=== PATIENT | female | born 1995 | race Caucasian/White ===

== ENCOUNTER 2018-02-11 22:21 | Observation (INO) | payer OTHER, SELFPAY ==
[2018-02-12 00:44] VITALS: BMI 33.5
[2018-02-12 00:45] VITALS: BP 102/59; PULSE 76; RESP 16; TEMP 36.8; O2SAT 99
[2018-02-12 00:46] VITALS: BMI 33.5
--- NOTE | 2018-02-12 00:59 | PCM.HP.STD ---
Problem List (1) Seizure Status: Acute History of Present Illness Date of Admission: 02/12/18 Chief Complaint: seizure The patient is a 22 year old female patient with no significant past medical history presents to the ER at [facility] after experiencing a seizure. She states she felt lght headed and dizzy this evening and suddenly felt as if she might pass out. She sat down in a chair and her family reported that during this time she started to tense up and her arms curled inward towards her body. She was unresponsive for two minutes. She was incontinent to urine during this event. She has had no subsequent episodes. She denies previous seizure history. She denies illicit drugs or any new chemical exposure. She returned from a semester abroad in January having spent the semester in [facility]. CT head is within normal limits. Tox screen was negative for illicit drugs and alcohol level was normal. WBC count slightly elevated and she does have leukocytes in her urine. ER doctor felt strongly that patient needed observation so transfer was accepted to our facility. She will get an EEG and a neurology consult. The patient is a college student at [employer] in [place]. Past Medical History Surgical History: no surgical history Smoking Status: Never smoker Tobacco Use: Secondhand Review of Systems Constitutional: Denies: Chills, Fever, Weight Change HEENT: Denies: Head Aches, Sinus Congestion, Sinus Drainage Cardiovascular: Denies: Chest Pain, Palpitations Respiratory: Denies: Cough, Shortness of breath at rest, Sputum production Gastrointestinal: Denies: Abdominal Pain, Nausea, Vomiting Genitourinary: Denies: Dysuria Musculoskeletal: Denies: Joint Pain, Joint Tenderness Skin: Denies: Rash, Wounds Neurological: Reports: Seizures. Denies: Focal weakness, Numbness, Tingling Psychiatric: Denies: Anxiety, Depression, Homicidal Ideations, Suicidal Ideations Hematologic/ Lymphatic: Denies: Easy Bruising, Easy Bleeding VTE Information - Inpt Only VTE Present on Admission: No VTE Mechan Device Prophylaxis: SCD's VTE Pharm Prophylaxis ordered?: No Patient Problems: Active and Suspected Problems Seizure (Acute) - Physical Exam General: Alert, Oriented x3, Cooperative HEENT: Atraumatic, PERRLA, EOMI, Normocephalic Neck: Supple Lungs: Clear to auscultation, Normal air movement, No rhonchi, No wheeze, No rales Cardiovascular: Regular rate, Regular Rhythm, Normal S1, Normal S2, No murmurs Abdomen: Bowel Sounds Present, Soft, Non Tender Extremities: No edema, Capillary Refill Less than 3 Seconds Skin: No rashes, No breakdown Musculoskeletal: No Tenderness to Palpation of Joints or Extremities Neurological: Cranial nerves II-XII grossly intact Psych/Mental Status: Normal Affect, Appropriate Weight: 201 lb 4.513 oz Body Mass Index (BMI) 33.5 Assessment/Plan All Active Problems Seizure (Acute) New onset Seizure Plan - consult neurology, EEG in am, seizure precautions Code Visit OBSV E&M: 84290 Initial observation care L2
--- NOTE | 2018-02-12 01:06 | HP.PCM_ITS ---
Problem List (1) Seizure Status: Acute History of Present Illness Date of Admission: 02/12/18 Chief Complaint: seizure The patient is a 22 year old female patient with no significant past medical history presents to the ER at [facility] after experiencing a seizure. She states she felt lght headed and dizzy this evening and suddenly felt as if she might pass out. She sat down in a chair and her family reported that during this time she started to tense up and her arms curled inward towards her body. She was unresponsive for two minutes. She was incontinent to urine during this event. She has had no subsequent episodes. She denies previous seizure history. She denies illicit drugs or any new chemical exposure. She returned from a semester abroad in January having spent the semester in [facility]. CT head is within normal limits. Tox screen was negative for illicit drugs and alcohol level was normal. WBC count slightly elevated and she does have leukocytes in her urine. ER doctor felt strongly that patient needed observation so transfer was accepted to our facility. She will get an EEG and a neurology consult. The patient is a college student at [employer] in [place]. Past Medical History Surgical History: no surgical history Smoking Status: Never smoker Tobacco Use: Secondhand Review of Systems Constitutional: Denies: Chills, Fever, Weight Change HEENT: Denies: Head Aches, Sinus Congestion, Sinus Drainage Cardiovascular: Denies: Chest Pain, Palpitations Respiratory: Denies: Cough, Shortness of breath at rest, Sputum production Gastrointestinal: Denies: Abdominal Pain, Nausea, Vomiting Genitourinary: Denies: Dysuria Musculoskeletal: Denies: Joint Pain, Joint Tenderness Skin: Denies: Rash, Wounds Neurological: Reports: Seizures. Denies: Focal weakness, Numbness, Tingling Psychiatric: Denies: Anxiety, Depression, Homicidal Ideations, Suicidal Ideations Hematologic/ Lymphatic: Denies: Easy Bruising, Easy Bleeding VTE Information - Inpt Only VTE Present on Admission: No VTE Mechan Device Prophylaxis: SCD's VTE Pharm Prophylaxis ordered?: No Patient Problems: Active and Suspected Problems Seizure (Acute) - Physical Exam General: Alert, Oriented x3, Cooperative HEENT: Atraumatic, PERRLA, EOMI, Normocephalic Neck: Supple Lungs: Clear to auscultation, Normal air movement, No rhonchi, No wheeze, No rales Cardiovascular: Regular rate, Regular Rhythm, Normal S1, Normal S2, No murmurs Abdomen: Bowel Sounds Present, Soft, Non Tender Extremities: No edema, Capillary Refill Less than 3 Seconds Skin: No rashes, No breakdown Musculoskeletal: No Tenderness to Palpation of Joints or Extremities Neurological: Cranial nerves II-XII grossly intact Psych/Mental Status: Normal Affect, Appropriate Weight: 201 lb 4.513 oz Body Mass Index (BMI) 33.5 Assessment/Plan All Active Problems Seizure (Acute) New onset Seizure Plan - consult neurology, EEG in am, seizure precautions Code Visit OBSV E&M: 25453 Initial observation care L2
[2018-02-12 06:29] VITALS: BP 99/46; PULSE 52; RESP 14; TEMP 36.6; O2SAT 100
--- NOTE | 2018-02-12 09:00 | PCM.PN.HOSP ---
Patient Problems: Active and Suspected Problems Seizure (Acute) Subjective: Patient seen and examined. She was admitted with a complaint of new onset seizure. Mother was by her bedside. According to patient and her mother, started feeling lightheaded and dizzy prior to onset of the seizure. She had about a 2-minute tonic seizure which involved all limbs with associated urinary incontinence. She is never had a seizure before and there does not appear to be any family history of seizure. She denies any alcohol intake or drug use. She spent a semester abroad in [facility] to return recently. Neurology has been consulted and she is getting an EEG this morning. Vitals/I&O's: Vital Signs Temp Pulse Resp BP Pulse Ox 97.9 F 52 L 14 99/46 L 100 02/12/18 06:29 02/12/18 06:29 02/12/18 06:29 02/12/18 06:29 02/12/18 06:29 Oxygen Delivery Method Room Air Weight: 201 lb 4.513 oz Body Mass Index (BMI) 33.5 General: Alert, Oriented x3, Cooperative, No apparent distress HEENT: Atraumatic, PERRLA, EOMI, Normocephalic Oral: Moist Mucosa Neck: Supple, No JVD, Negative Carotid Bruits Lungs: Clear to auscultation, Normal air movement, No rhonchi, No wheeze, No rales Cardiovascular: Regular rate, Regular Rhythm, Normal S1, Normal S2, No murmurs Abdomen: Bowel Sounds Present, Soft, Non Tender, Non-Distended, No Hepato-splenomegaly Extremities: No clubbing, No cyanosis, No edema, Capillary Refill Less than 3 Seconds Skin: No rashes, No breakdown Musculoskeletal: No Tenderness to Palpation of Joints or Extremities Lymphatic: No Cervical, Supraclavicular, or Inguinal Adenopathy Neurological: Cranial nerves II-XII grossly intact, Neuro grossly intact, Motor Exam 5/5 strength throughout Psych/Mental Status: Normal Affect, Appropriate, Alert and oriented to time, place, person, mood and affect Current Medications Magnesium Hydroxide (Milk Of Magnesia) 30 ml PO DAILY PRN PRN PRN Reason: Constipation Sodium Chloride () 5 - 15 ml IV UD PRN PRN Reason: SALINE FLUSH Medical Necessity - Tobacco Use Smoking Status: Never smoker Tobacco Use: Secondhand Assessment/Plan All Active Problems Seizure (Acute) 1. New onset seizure hasnt had any seizure again since admission no family history of seizure neurology consulted; awaiting rec's to have EEG this morning. CT head done at [facility] was negative for any acute pathology\ 2. DVT prophylaxis: encourage ambulation Code Visit OBSV E&M: 97549 Subsequent observation care L3
--- NOTE | 2018-02-12 09:04 | PN_ITS ---
Patient Problems: Active and Suspected Problems Seizure (Acute) Subjective: Patient seen and examined. She was admitted with a complaint of new onset seizure. Mother was by her bedside. According to patient and her mother, started feeling lightheaded and dizzy prior to onset of the seizure. She had about a 2-minute tonic seizure which involved all limbs with associated urinary incontinence. She is never had a seizure before and there does not appear to be any family history of seizure. She denies any alcohol intake or drug use. She spent a semester abroad in [facility] to return recently. Neurology has been consulted and she is getting an EEG this morning. Vitals/I&O's: Vital Signs Temp Pulse Resp BP Pulse Ox 97.9 F 52 L 14 99/46 L 100 02/12/18 06:29 02/12/18 06:29 02/12/18 06:29 02/12/18 06:29 02/12/18 06:29 Oxygen Delivery Method Room Air Weight: 201 lb 4.513 oz Body Mass Index (BMI) 33.5 General: Alert, Oriented x3, Cooperative, No apparent distress HEENT: Atraumatic, PERRLA, EOMI, Normocephalic Oral: Moist Mucosa Neck: Supple, No JVD, Negative Carotid Bruits Lungs: Clear to auscultation, Normal air movement, No rhonchi, No wheeze, No rales Cardiovascular: Regular rate, Regular Rhythm, Normal S1, Normal S2, No murmurs Abdomen: Bowel Sounds Present, Soft, Non Tender, Non-Distended, No Hepato- splenomegaly Extremities: No clubbing, No cyanosis, No edema, Capillary Refill Less than 3 Seconds Skin: No rashes, No breakdown Musculoskeletal: No Tenderness to Palpation of Joints or Extremities Lymphatic: No Cervical, Supraclavicular, or Inguinal Adenopathy Neurological: Cranial nerves II-XII grossly intact, Neuro grossly intact, Motor Exam 5/5 strength throughout Psych/Mental Status: Normal Affect, Appropriate, Alert and oriented to time, place, person, mood and affect Current Medications Magnesium Hydroxide (Milk Of Magnesia) 30 ml PO DAILY PRN PRN PRN Reason: Constipation Sodium Chloride () 5 - 15 ml IV UD PRN PRN Reason: SALINE FLUSH Medical Necessity - Tobacco Use Smoking Status: Never smoker Tobacco Use: Secondhand Assessment/Plan All Active Problems Seizure (Acute) 1. New onset seizure * hasnt had any seizure again since admission * no family history of seizure * neurology consulted; awaiting rec's * to have EEG this morning. * CT head done at [facility] was negative for any acute pathology\ * 2. DVT prophylaxis: encourage ambulation Code Visit OBSV E&M: [id number] Subsequent observation care L3
[2018-02-12 10:10] VITALS: BP 112/60; PULSE 60; RESP 18; TEMP 36.6; O2SAT 99
--- NOTE | 2018-02-12 10:37 | EEG ---
- Electroencephalogram This is a 18 channel electroencephalogram performed utilizing the International 10-20 electrode placement protocol as well as photic stimulation, hyperventilation and EKG reference leads on this 22-year-old female with a diagnosis of possible seizures. Background activity demonstrates 10 Hz posterior frequency which attenuates with eye opening. The patient remained awake throughout the recording. Hyperventilation is performed for 4 minutes with good effort with no lateralizing or epileptiform changes. The post hyperventilatory phase is unremarkable. EKG rhythm strip monitoring is normal sinus rhythm throughout the recording and photic stimulation generates a normal symmetric driving response in the posterior leads. There are no lateralizing or epileptiform changes noted. Impression: Normal awake electroencephalogram.
--- NOTE | 2018-02-12 10:40 | CON.PCM_ITS ---
Reason for Consult Date of Consultation: 02/12/18 Reason for Consultation: sz vs syncope History of Present Illness: The patient is a 22 year old right handed white female reports yesterday at 6pm noted sensation of heat, lightheadedness, numb ears and lips, sat down and lost consciousness, after two minutes awake and alert, had urinary incontinence, by the time squad arrived approx 8 minutes later she was normal and had already changed her clothes herself and felt normal, normal since. no recent illness, no meds. no otc or herbal, does describe jet lag. although hasnt travelled since 01/25/18. ct and ekg reportedly ok at [place]. no tongue biting. never any other events or tongue biting or nocturnal events. no significant head injuries. Per admit note: The patient is a 22 year old female patient with no significant past medical history presents to the ER at [facility] after experiencing a seizure. She states she felt lght headed and dizzy this evening and suddenly felt as if she might pass out. She sat down in a chair and her family reported that during this time she started to tense up and her arms curled inward towards her body. She was unresponsive for two minutes. She was incontinent to urine during this event. She has had no subsequent episodes. She denies previous seizure history. She denies illicit drugs or any new chemical exposure. She returned from a semester abroad in January having spent the semester in [facility]. CT head is within normal limits. Tox screen was negative for illicit drugs and alcohol level was normal. WBC count slightly elevated and she does have leukocytes in her urine. ER doctor felt strongly that patient needed obse rvation so transfer was accepted to our facility. She will get an EEG and a neurology consult. The patient is a college student at [employer] in [place]. Past Medical History Allergies amoxicillin Allergy (Verified 02/12/18 01:09) Rash Home Medications: Ambulatory Orders Medication Instructions Recorded NK 02/12/18 Surgical History: no surgical history Smoking Status: Never smoker Tobacco Use: Secondhand Review of Systems Constitutional: Denies: Chills, Fever, Weight Change HEENT: Denies: Head Aches, Sinus Congestion, Sinus Drainage Cardiovascular: Denies: Chest Pain, Palpitations Respiratory: Denies: Cough, Shortness of breath at rest, Sputum production Gastrointestinal: Denies: Abdominal Pain, Nausea, Vomiting Genitourinary: Denies: Dysuria Musculoskeletal: Denies: Joint Pain, Joint Tenderness Skin: Denies: Rash, Wounds Neurological: Denies: Numbness, Tingling, Focal weakness Psychiatric: Denies: Anxiety, Depression, Homicidal Ideations, Suicidal Ideations Hematologic/ Lymphatic: Denies: Easy Bruising, Easy Bleeding Patient Problems: Active and Suspected Problems Seizure (Acute) - Physical Exam General: Alert, Oriented x3, Cooperative HEENT: Atraumatic, PERRLA, EOMI, Normocephalic Neck: Supple, No JVD, Negative Carotid Bruits Lungs: Clear to auscultation, Normal air movement Cardiovascular: Regular rate, No murmurs Abdomen: Bowel Sounds Present, Soft, Non Tender Extremities: No edema, Capillary Refill Less than 3 Seconds Skin: No rashes, No breakdown Musculoskeletal: No Tenderness to Palpation of Joints or Extremities Neurological: Cranial nerves II-XII grossly intact Psych/Mental Status: Normal Affect, Appropriate Vital Signs Temp Pulse Resp BP Pulse Ox 36.6 C 60 18 112/60 99 02/12/18 10:10 02/12/18 10:10 02/12/18 10:10 02/12/18 10:10 02/12/18 10:10 Oxygen Delivery Method Room Air Weight: 91.3 kg Body Mass Index (BMI) 33.5 Current Home Med List Medication Instructions Recorded Confirmed Type NK 02/12/18 02/12/18 History Current Medications Generic Name Dose Route Start Last Admin Trade Name Freq PRN Reason Stop Dose Admin Magnesium Hydroxide 30 ml 02/12/18 01:17 Milk Of Magnesia PO DAILY PRN PRN Constipation Sodium Chloride 5 - 15 ml 02/12/18 01:25 IV UD PRN SALINE FLUSH EEG: Normal Assessment/Plan All Active Problems Seizure (Acute) suspect syncope: history of low blood pressure mri to complete workup, dc if neg encourage fluids liberal salt intake
--- NOTE | 2018-02-12 11:22 | MRI_ITS ---
STUDY: MRI BRAIN WITH AND WITHOUT CONTRAST REASON FOR EXAM: Female, 22 years old. SYNCOPE, lightheaded, facial numbness, loc, urninary incontinence, no hx seizure. TECHNIQUE: Standardized multiplanar fat and water weighted pulse sequences were obtained. 7 ml of Gadavist contrast material was administered intravenously for the contrast portion of the examination. COMPARISON: None. FINDINGS: Normal size of the ventricles and extra-axial spaces for the patient's age. Normal white matter tracts of the supratentorial brain. Normal bilateral basal ganglia. Normal thalami. There is no extra-axial fluid accumulation. Normal flow voids within the major intracranial circulation suggesting patency by spin echo criteria. Normal venous enhancement. There is no enhancing intra-axial or extra-axial abnormality. Normal sella turcica, pituitary gland, infundibular stalk, optic chiasm and hypothalamus. Normal tectal plate and pineal gland. Normal midbrain, farhat and medulla. Normal cerebellum. Normal basal cisterns. Normal bilateral temporal bones. Normal bilateral internal auditory canals. No demonstrated orbital abnormality, within the constraints of a routine brain study. Normal visualized paranasal sinuses. Normal calvarium and skull base. Normal visualized soft tissue structures. Normal visualized upper cervical spine. MRI/Brain W/WO Contrast IMPRESSION: Normal unenhanced and enhanced MRI of the brain. Electronically Signed: Russ Leal MD at 13:19 EST Tel , Service support ,
[2018-02-12 14:16] VITALS: BP 109/56; PULSE 77; RESP 18; TEMP 37.3; O2SAT 99
[2018-02-12 20:20] VITALS: BP 112/65; PULSE 73; RESP 16; TEMP 36.8; O2SAT 100
[2018-02-13 02:19] VITALS: BP 113/57; PULSE 69; RESP 16; TEMP 36.4; O2SAT 99
[2018-02-13 06:13] LABS: Absolute Lymphocyte Count 3.78 X10^3/ul (0.83-4.51); Basophil# 0.02 X10^3/uL; Basophil% 0.2 % (0-1); Eosinophil# 0.19 X10^3/uL; Eosinophils% 1.9 % (0-5); Hematocrit 38.7 % (37-47); Lymphocyte # 3.78 X10^3/ul (4.0); Lymphocyte % 38.7 % (19-41); Mean Corpuscular Hgb 28.4 pg (27.0-32.0); Mean Corpuscular Volume 91.5 fL (81-99); Mean Platelet Vol. 13.1 fl (6.2-12.0); Monocyte# 0.73 X10^3/uL; Monocyte% 7.5 % (0-10); Neutrophil # 5.04 X10^3/uL (2.7-7.7); Neutrophil % 51.5 % (47-70); Platelet Count 210 K/mm3 (150-450); RBC Distribution Width CV 12.8 % (11.6-14.6); RBC Distribution Width SD 42.7 fl (35.1-43.9); Red Blood Count 4.23 M/mm3 (4.2-5.4); White Blood Count 9.8 K/mm3 (4.4-11.0)
[2018-02-13 06:24] LABS: POSITIVE COUNT NO; POSITIVE DIFFERENTIAL NO; POSITIVE MORPHOLOGY NO
[2018-02-13 06:32] LABS: Anion Gap 8 (5-15); BUN 10 mg/dL (7-18); BUN/Creat Ratio 14.9 RATIO (10-20); Calcium,Total 8.5 mg/dL (8.5-10.1); Chloride 106 mmol/L (98-107); Creatinine, Serum 0.67 mg/dL (0.55-1.02); EST Glomerular Filtration Rate 117 mL/min (>60); Est Glom Filt Rate - Afr Amer 142 mL/min (>60); Estimated Creatinine Clearance 119.52 ml/min; Glucose 81 mg/dL (74-106); Potassium 3.7 mmol/L (3.5-5.1); Sodium Level 142 mmol/L (136-145)
[2018-02-13 09:15] VITALS: BP 107/56; PULSE 70; RESP 18; TEMP 36.4; O2SAT 100
--- NOTE | 2018-02-13 09:18 | DS.PCM_ITS ---
Discharge Date and Diagnosis Date of Admission: 02/12/18 Date of Discharge: 02/13/18 - Primary Discharge Diagnosis Active and Suspected Problems Seizure (Acute) Hospital Course and Treatment Imaging Results: Diagnostic Data Brain MRI 02/12/18 11:22 IMPRESSION: Normal unenhanced and enhanced MRI of the brain. Electronically Signed: Russ Leal MD at 13:19 EST Tel , Service support , neurology Operations: None Procedures: Electroencephalogram Summary of Care Provided: The patient is a 22 year old F was admitted with a complaint of seizure-like episode. Patient started feeling lightheaded and dizzy prior to the onset of the episode and according to her mother she had about a 2-minute tonic seizure- like episode with all the limbs stiffening and associated urinary incontinence. She had never had a seizure before and did not have any family history of seizure. She had no associated alcohol intake or drug use. Neurology was consulted. She had an EEG which was normal and she had an MRI of the brain which was also normal. Per neurology standpoint, they did not think this was a seizure and was more likely a syncopal episode. CT of the brain done [place] [facility] was also normal. Patient remained stable and was discharged home on 02/13/2018. She was counseled to continue with adequate oral fluid intake. She is to follow-up with her primary care doctor and neurologist. Patient seen and examined prior to discharge. She had no complaints and felt well. Mother was by her bedside. She denied any fever, any chills, any cough or chest pain, shortness of breath, abdominal pain, any diarrhea vomiting. 12 point review of systems otherwise negative. Labs and vitals reviewed. Home medications reviewed and reconciled. o/e: Vital Signs Height 5 ft 5 in Weight: 201 lb 4.513 oz Weight in Pounds 201.3 lbs Pulse Ox 100 Temperature 97.5 F Pulse Rate 70 Respiratory Rate 18 Blood Pressure 107/56 Blood Pressure Position Semi-Fowlers [] General: Alert, Oriented x3, Cooperative, No apparent distress HEENT: Atraumatic, PERRLA, EOMI, Normocephalic Oral: Moist Mucosa Neck: Supple, No JVD, Negative Carotid Bruits Lungs: Clear to auscultation, Normal air movement, No rhonchi, No wheeze, No rales Cardiovascular: Regular rate, Regular Rhythm, Normal S1, Normal S2, No murmurs Abdomen: Bowel Sounds Present, Soft, Non Tender, Non-Distended, No Hepato- splenomegaly Extremities: No clubbing, No cyanosis, No edema, Capillary Refill Less than 3 Seconds Skin: No rashes, No breakdown Musculoskeletal: No Tenderness to Palpation of Joints or Extremities Lymphatic: No Cervical, Supraclavicular, or Inguinal Adenopathy Neurological: Cranial nerves II-XII grossly intact, Neuro grossly intact, Motor Exam 5/5 strength throughout Psych/Mental Status: Normal Affect, Appropriate, Alert and oriented to time, place, person, mood and affect Plan as described above. - Physical Exam Vital Signs Temp Pulse Resp BP Pulse Ox 97.5 F L 70 18 107/56 L 100 02/13/18 09:15 02/13/18 09:15 02/13/18 09:15 02/13/18 09:15 02/13/18 09:15 Oxygen Delivery Method Room Air Weight: 201 lb 4.513 oz Body Mass Index (BMI) 33.5 Laboratory Tests Past 24 Hrs 02/13/18 02/13/18 05:25 05:25 WBC 9.8 RBC 4.23 Hgb 12.0 Hct 38.7 MCV 91.5 MCH 28.4 MCHC 31.0 L RDW 12.8 RDW Differential 42.7 Plt Count 210 MPV 13.1 H Immature Gran % (Auto) 0.200 Neut % (Auto) 51.5 Lymph % (Auto) 38.7 Beadle % (Auto) 7.5 Eos % (Auto) 1.9 Baso % (Auto) 0.2 Absolute Neuts (auto) 5.0 Absolute Lymphs (auto) 3.78 Total Counted Not Reportable Sodium 142 Potassium 3.7 Chloride 106 Carbon Dioxide 28.0 Anion Gap 8 BUN 10 Creatinine 0.67 Estim Creat Clear Calc 119.52 Est GFR (MDRD) Af Amer 142 Est GFR (MDRD) Non-Af 117 BUN/Creatinine Ratio 14.9 Glucose 81 Calcium 8.5 Discharge Diet: No Restrictions Discharge Activity: Return to Normal Activity Weight Bearing Status: Weight bearing as tolerated Call your doctor if you observe: Dizziness, Fainting spells Home Medications: Medications to take at Discharge NK 02/12/18 Please Follow Up With: Rachel Washington MD When: 1 week Please Follow Up With: Denis Singleton MD When: 1 week Patient Instructions: What Is Syncope?, Causes of Syncope, Treating Syncope: Prevention Disposition: Home Minutes spent on discharge:: 35 Patient Condition:: Stable Medical Necessity - Tobacco Use Smoking Status: Never smoker Tobacco Use: Secondhand Meaningful Use Info Meaningful Use Diagnoses (Choose all that apply): None applicable Code Visit Inpatient E&M: 99879 Disch Hosp
--- NOTE | 2018-02-13 09:18 | DCINST_ITS ---
- Discharge Diagnoses Current Active Problems: Current Active and Chronic Problems Seizure (Acute) You will use the following diet at home:: Regular Your food should be the consistency of: Regular Your liquids should be the consistency of: Regular/Thin Discharge Activity: Return to Normal Activity Weight Bearing Status: Weight bearing as tolerated Call your doctor if you observe: Dizziness, Fainting spells Instructions: What Is Syncope?, Causes of Syncope, Treating Syncope: Prevention Allergies/Adverse Reactions: Allergies amoxicillin Allergy (Verified 02/12/18 01:09) Rash Medications to take at Discharge NK 02/12/18 Test Results: Test results from this visit will be discussed in further detail at your follow- up appointment, if applicable. Please Follow Up With: Rachel Washington MD When: 1 week Please Follow Up With: Denis Singleton MD When: 1 week
== END 2018-02-13 10:59 | disposition home or self-care (01) ==
PROVIDERS: Admitting Provider Family Medicine; Visit Provider Student in an Organized Health Care Education/Training Program
DX: R56.9 Unspecified convulsions (principal); R42 Dizziness and giddiness; R32 Unspecified urinary incontinence
CPT/HCPCS: 36415; 70553; 80048; 85025; 99218; A9585; A4216; G0378; G0379